=== PATIENT | male | born 1975 | race Caucasian/White ===

== ENCOUNTER 2017-12-09 20:43 | Inpatient (IN) | payer MEDICAID, OTHER ==
[2017-12-09 21:34] LABS: WHITE BLOOD COUNT 21.7 10^3/ul (4.8-10.8)
[2017-12-09 21:34] LABS: HEMATOCRIT 40.9 % (42.0-52.0); HEMOGLOBIN 14.2 g/dl (14.0-18.0); MEAN CORPUSCULAR HEMOGLOBIN 30.7 pg (29.0-33.0); MEAN CORPUSCULAR HGB CONC 34.7 g/dl (32.0-37.0); MEAN CORPUSCULAR VOLUME 88.3 fl (82.0-101.0); MEAN PLATELET VOLUME 9.3 fl (7.4-10.4); PLATELET COUNT 173 10^3/UL (140-415); POSITIVE DIFF @See below; RED BLOOD COUNT 4.63 10^6/ul (4.70-6.10); RED CELL DISTRIBUTION WIDTH 13.6 % (11.5-14.5)
[2017-12-09 21:36] LABS: ADD MAN DIFF? YES
[2017-12-09 21:55] LABS: INR 1.01; PROTIME 13.4 Sec (11.9-14.9)
[2017-12-09 21:56] LABS: PARTIAL THROMBOPLASTIN TIME 35.3 Sec (25.0-35.0)
[2017-12-09 22:00] LABS: ALANINE AMINOTRANSFERASE 57 IU/L (13-69); ALBUMIN 4.1 g/dl (3.3-4.9); ALKALINE PHOSPHATASE 87 IU/L (42-121); ANION GAP 18 (8-16); ASPARTATE AMINO TRANSFERASE 50 IU/L (15-46); BILIRUBIN,INDIRECT 0.5 mg/dl (0-1.1); BILIRUBIN,TOTAL 0.5 mg/dl (0.2-1.3); BLOOD UREA NITROGEN 39 mg/dl (7-20); CALCIUM 9.7 mg/dl (8.4-10.2); CARBON DIOXIDE 17 mmol/L (21-31); CHLORIDE 104 mmol/L (97-110); CREATININE 5.67 mg/dl (0.61-1.24); GLUCOSE 146 mg/dl (70-220); LIPASE 29 U/L (23-300); POTASSIUM 4.4 mmol/L (3.5-5.1); SODIUM 135 mmol/L (135-144); TOTAL PROTEIN 7.5 g/dl (6.1-8.1)
[2017-12-09 22:15] LABS: ANISOCYTOSIS 2+ (0-0); BAND NEUTROPHILS #M 6.2 10^3/ul (0.0-0.6); BAND NEUTROPHILS % (M) 29 % (0-4); LYMPHOCYTES #M 0.8 10^3/ul (0.8-2.9); LYMPHOCYTES % (M) 4 % (15-51); MICROCYTOSIS 1+ (0-0); MONOCYTE #M 1.5 10^3/ul (0.3-0.9); MONOCYTES % (M) 7 % (0-11); PLATELET ESTIMATE NORMAL; POLYCHROMASIA 3+ (0-0); REACTIVE LYMPHOCYTES #M 0.2 10^3/ul (0.0-0.0); REACTIVE LYMPHOCYTES% (M) 1 % (0-0); SEG NEUT #M 14.1 10^3/ul (1.6-7.5); SEGMENTED NEUTROPHILS (M) % 59 % (39-77); SMUDGE%M 4 % (0-0)
[2017-12-09 22:19] LABS: TROPONIN-I 0.153 ng/ml (0.000-0.120)
[2017-12-09 22:28] LABS: URINE BLOOD (Dip) POC 2+ (NEGATIVE); URINE GLUCOSE (Dip) POC Negative (NEGATIVE); URINE KETONES (Dip) POC Negative (NEGATIVE); URINE LEUKOCYTE EST (Dip) POC Negative (NEGATIVE); URINE NITRITE (Dip) POC Negative (NEGATIVE); URINE TOTAL PROTEIN POC 3+ (NEGATIVE)
[2017-12-09] MEDS: ONDANSETRON 4 MG INJ IV (23:08)
[2017-12-09] MEDS: morphine 4 MG/ML VIAL IV (23:09)
[2017-12-10 00:14] LABS: LACTIC ACID 1.8 mmol/L (0.5-2.0)
[2017-12-10] MEDS: VANCOMYCIN 1 GM (PMX) 250 ML IVPB (01:29)
[2017-12-10] MEDS: PIPER-TAZO 3.375 GM IV (PMX) 100 ML IVPB (01:29)
[2017-12-10] MEDS: ACETAMINOPHEN 325 MG TAB PO ×3 (01:29→15:02)
[2017-12-10] MEDS: ONDANSETRON 4 MG INJ IV ×3 (02:05→13:57)
[2017-12-10] MEDS ORDERED: ALBUTEROL/IPRATROPIUM (NEB) 3 ML AMP HHN (02:30)
[2017-12-10] MEDS ORDERED: NACL 0.9% 3 ML SYG IV (02:30)
[2017-12-10] MEDS ORDERED: NITROGLYCERIN (SL) 0.4 MG TAB SL (02:30)
[2017-12-10] MEDS: morphine 4 MG/ML VIAL IV (03:37)
[2017-12-10 04:19] LABS: CREATINE KINASE 882 IU/L (23-200)
[2017-12-10 04:19] LABS: LACTIC ACID 0.9 mmol/L (0.5-2.0)
[2017-12-10 04:30] LABS: CK INDEX 0.1
[2017-12-10 04:46] LABS: TROPONIN-I 0.139 ng/ml (0.000-0.120)
[2017-12-10 05:55] LABS: ADD MAN DIFF? NO
[2017-12-10] MEDS ORDERED: VANCOMYCIN IV PER PHARMACY XX (06:00)
[2017-12-10 06:08] LABS: WHITE BLOOD COUNT 20.4 10^3/ul (4.8-10.8)
[2017-12-10 06:08] LABS: BASOPHIL # 0.1 10^3/ul (0.0-0.1); BASOPHILS % 0.2 % (0.0-2.0); HEMOGLOBIN 14.1 g/dl (14.0-18.0); LYMPHOCYTES # 0.8 10^3/ul (0.8-2.9); LYMPHOCYTES % 3.8 % (15.0-51.0); MEAN CORPUSCULAR HEMOGLOBIN 30.7 pg (29.0-33.0); MEAN CORPUSCULAR HGB CONC 34.4 g/dl (32.0-37.0); MEAN CORPUSCULAR VOLUME 89.3 fl (82.0-101.0); MEAN PLATELET VOLUME 9.8 fl (7.4-10.4); MONOCYTE # 1.1 10^3/ul (0.3-0.9); MONOCYTES % 5.5 % (0.0-11.0); NEUTROPHIL # 18.3 10^3/ul (1.6-7.5); NEUTROPHILS % 89.6 % (39.0-77.0); PLATELET COUNT 145 10^3/UL (140-415); POSITIVE DIFF @See below; RED BLOOD COUNT 4.59 10^6/ul (4.70-6.10); RED CELL DISTRIBUTION WIDTH 13.5 % (11.5-14.5)
[2017-12-10 06:29] LABS: LACTIC ACID 0.9 mmol/L (0.5-2.0)
[2017-12-10 06:43] LABS: ALANINE AMINOTRANSFERASE 54 IU/L (13-69); ALBUMIN 3.7 g/dl (3.3-4.9); ALBUMIN/GLOBULIN RATIO 1.54; ALKALINE PHOSPHATASE 81 IU/L (42-121); ANION GAP 22 (8-16); ASPARTATE AMINO TRANSFERASE 44 IU/L (15-46); BILIRUBIN,INDIRECT 0.5 mg/dl (0-1.1); BILIRUBIN,TOTAL 0.5 mg/dl (0.2-1.3); BLOOD UREA NITROGEN 46 mg/dl (7-20); CALCIUM 9.3 mg/dl (8.4-10.2); CARBON DIOXIDE 19 mmol/L (21-31); CHLORIDE 100 mmol/L (97-110); CHOL/HDL RATIO 3.8 RATIO; CHOLESTEROL 190 mg/dl (100-200); CREATININE 5.76 mg/dl (0.61-1.24); GLUCOSE 111 mg/dl (70-220); HDL CHOLESTEROL 49 mg/dl (27-67); LDL CHOLESTEROL,CALCULATED 107 mg/dl; MAGNESIUM 1.5 mg/dl (1.7-2.5); POTASSIUM 5.1 mmol/L (3.5-5.1); SODIUM 136 mmol/L (135-144); TOTAL PROTEIN 6.1 g/dl (6.1-8.1); TRIGLYCERIDES 170 mg/dl (0-149)
[2017-12-10 07:19] LABS: HEMOGLOBIN A1C 5.2 % (0-5.9)
[2017-12-10 07:56] LABS: ANISOCYTOSIS 1+ (0-0); BAND NEUTROPHILS #M 7.7 10^3/ul (0.0-0.6); BAND NEUTROPHILS % (M) 38 % (0-4); LYMPHOCYTES #M 0.2 10^3/ul (0.8-2.9); LYMPHOCYTES % (M) 1 % (15-51); MICROCYTOSIS 1+ (0-0); MONOCYTE #M 1.4 10^3/ul (0.3-0.9); MONOCYTES % (M) 7 % (0-11); PLATELET ESTIMATE NORMAL; REACTIVE LYMPHOCYTES #M 0.2 10^3/ul (0.0-0.0); REACTIVE LYMPHOCYTES% (M) 1 % (0-0); SEG NEUT #M 12.4 10^3/ul (1.6-7.5); SEGMENTED NEUTROPHILS (M) % 53 % (39-77); SMUDGE%M 7 % (0-0)
[2017-12-10] MEDS: SOD CHLORIDE 0.9% 1,000 ML IV (08:15)
[2017-12-10] MEDS: VANCOMYCIN 750 MG in SOD CHLORIDE 0.9% 150 ML IVPB (08:30)
[2017-12-10] MEDS: morphine 2 MG INJ IV ×2 (08:40→16:27)
[2017-12-10] MEDS: BENAZEPRIL 5 MG TAB PO (08:41)
[2017-12-10] MEDS: LABETALOL 200 MG TAB PO (08:41)
[2017-12-10] MEDS: HEPARIN 5,000 UNIT/0.5 ML VIAL SC ×2 (08:43→21:00)
[2017-12-10] MEDS: ASPIRIN (EC) 81 MG TAB PO (08:43)
[2017-12-10 11:16] LABS: CREATINE KINASE 646 IU/L (23-200)
[2017-12-10 11:28] LABS: CK INDEX 0.1
[2017-12-10 11:29] LABS: CK-MB 0.37 ng/ml (0.0-2.4); TROPONIN-I 0.147 ng/ml (0.000-0.120)
[2017-12-10] MEDS: PIPER-TAZO 2.25 GM (PMX) 50 ML IVPB ×3 (11:33→22:44)
[2017-12-10] MEDS ORDERED: PIPER-TAZO 2.25 GM (PMX) 50 ML IVPB (21:00)
[2017-12-11] MEDS: ONDANSETRON 4 MG INJ IV ×2 (00:43→11:24)
[2017-12-11] MEDS: morphine 2 MG INJ IV ×3 (00:44→19:10)
[2017-12-11] MEDS: ACETAMINOPHEN 325 MG TAB PO ×3 (00:45→23:53)
[2017-12-11] MEDS: PIPER-TAZO 2.25 GM (PMX) 50 ML IVPB ×3 (05:31→21:03)
[2017-12-11 06:43] LABS: HEMATOCRIT 37.1 % (42.0-52.0); HEMOGLOBIN 12.4 g/dl (14.0-18.0); MEAN CORPUSCULAR HEMOGLOBIN 30.8 pg (29.0-33.0); MEAN CORPUSCULAR HGB CONC 33.4 g/dl (32.0-37.0); MEAN CORPUSCULAR VOLUME 92.1 fl (82.0-101.0); MEAN PLATELET VOLUME 10.6 fl (7.4-10.4); PLATELET COUNT 125 10^3/UL (140-415); POSITIVE DIFF @See below; RED BLOOD COUNT 4.03 10^6/ul (4.70-6.10); RED CELL DISTRIBUTION WIDTH 13.9 % (11.5-14.5)
[2017-12-11 06:43] LABS: WHITE BLOOD COUNT 14.6 10^3/ul (4.8-10.8)
[2017-12-11 06:49] LABS: ADD MAN DIFF? YES
[2017-12-11 07:18] LABS: MAGNESIUM 2.2 mg/dl (1.7-2.5)
[2017-12-11 07:18] LABS: PHOSPHORUS 6.3 mg/dl (2.5-4.9)
[2017-12-11 07:35] LABS: ALANINE AMINOTRANSFERASE 50 IU/L (13-69); ALBUMIN 3.4 g/dl (3.3-4.9); ALBUMIN/GLOBULIN RATIO 1.17; ALKALINE PHOSPHATASE 81 IU/L (42-121); ANION GAP 20 (8-16); ASPARTATE AMINO TRANSFERASE 38 IU/L (15-46); BILIRUBIN,INDIRECT 0.3 mg/dl (0-1.1); BILIRUBIN,TOTAL 0.3 mg/dl (0.2-1.3); BLOOD UREA NITROGEN 65 mg/dl (7-20); CALCIUM 8.8 mg/dl (8.4-10.2); CARBON DIOXIDE 19 mmol/L (21-31); CHLORIDE 102 mmol/L (97-110); GLUCOSE 98 mg/dl (70-220); POTASSIUM 5.1 mmol/L (3.5-5.1); SODIUM 136 mmol/L (135-144); TOTAL PROTEIN 6.3 g/dl (6.1-8.1)
[2017-12-11] MEDS: FAMOTIDINE 20 MG TAB PO (08:22)
[2017-12-11] MEDS: ASPIRIN (EC) 81 MG TAB PO (08:22)
[2017-12-11] MEDS: HEPARIN 5,000 UNIT/0.5 ML VIAL SC ×2 (09:00→20:55)
[2017-12-11 09:10] LABS: ANISOCYTOSIS 1+ (0-0); BAND NEUTROPHILS #M 1.6 10^3/ul (0.0-0.6); BAND NEUTROPHILS % (M) 11 % (0-4); EOSINOPHILS % (M) 1 % (0-7); ERYTHROBLAST% (NRBC) (M) 1 % (0-0); GIANT THROMBO% (M) 1 % (0-0); LYMPHOCYTES % (M) 7 % (15-51); MICROCYTOSIS 1+ (0-0); MONOCYTE #M 0.7 10^3/ul (0.3-0.9); MONOCYTES % (M) 5 % (0-11); PLATELET ESTIMATE DECREASED; POIKILOCYTOSIS 1+ (0-0); POLYCHROMASIA 1+ (0-0); REACTIVE LYMPHOCYTES #M 0.1 10^3/ul (0.0-0.0); REACTIVE LYMPHOCYTES% (M) 1 % (0-0); SEG NEUT #M 11.2 10^3/ul (1.6-7.5); SEGMENTED NEUTROPHILS (M) % 75 % (39-77); SMUDGE%M 1 % (0-0)
[2017-12-11 09:34] LABS: HEPATITIS B SURFACE ANTIGEN NEGATIVE (NEGATIVE)
[2017-12-11] MEDS: PANTOPRAZOLE (EC) 40 MG TAB PO (09:49)
[2017-12-11 10:00] LABS: HEPATITIS B SURFACE ANTIBODY POSITIVE (NEGATIVE)
[2017-12-11] MEDS ORDERED: AL HYDROX/MG HYDROX/SIMETH 30 ML CUP PO (10:00)
[2017-12-11 11:51] LABS: TROPONIN-I 0.067 ng/ml (0.000-0.120)
[2017-12-11] MEDS: HEPARIN 1000 UNITS/ML 10 ML INJ CATHETER (12:42)
[2017-12-11] MEDS ORDERED: morphine LIQ (10 MG/5 ML) CUP PO (15:30)
[2017-12-11] MEDS ORDERED: HYDROmorphONE 0.5 MG/0.5 ML SYG IV (18:00)
[2017-12-11] MEDS: ALPRAZOLAM 1 MG TAB PO (20:45)
[2017-12-11] MEDS: ATORVASTATIN 40 MG TAB PO (20:55)
[2017-12-12] MEDS: ALPRAZOLAM 1 MG TAB PO ×3 (04:43→23:48)
[2017-12-12] MEDS: PANTOPRAZOLE (EC) 40 MG TAB PO ×2 (05:01→09:54)
[2017-12-12] MEDS: PIPER-TAZO 2.25 GM (PMX) 50 ML IVPB (05:02)
[2017-12-12 06:13] LABS: ADD MAN DIFF? NO
[2017-12-12 06:22] LABS: BASOPHILS % 0.4 % (0.0-2.0); EOSINOPHILS # 0.1 10^3/ul (0.0-0.5); EOSINOPHILS % 1.3 % (0.0-7.0); HEMATOCRIT 36.4 % (42.0-52.0); LYMPHOCYTES # 1.4 10^3/ul (0.8-2.9); MEAN CORPUSCULAR HEMOGLOBIN 30.5 pg (29.0-33.0); MEAN CORPUSCULAR VOLUME 92.4 fl (82.0-101.0); MONOCYTE # 1.4 10^3/ul (0.3-0.9); MONOCYTES % 13.6 % (0.0-11.0); NEUTROPHIL # 7.4 10^3/ul (1.6-7.5); NEUTROPHILS % 71.3 % (39.0-77.0); PLATELET COUNT 128 10^3/UL (140-415); RED BLOOD COUNT 3.94 10^6/ul (4.70-6.10); RED CELL DISTRIBUTION WIDTH 13.8 % (11.5-14.5)
[2017-12-12 06:22] LABS: WHITE BLOOD COUNT 10.4 10^3/ul (4.8-10.8)
[2017-12-12 06:54] LABS: TROPONIN-I 0.044 ng/ml (0.000-0.120)
[2017-12-12 06:59] LABS: ANION GAP 16 (8-16); BLOOD UREA NITROGEN 38 mg/dl (7-20); CALCIUM 8.8 mg/dl (8.4-10.2); CARBON DIOXIDE 29 mmol/L (21-31); CHLORIDE 99 mmol/L (97-110); CREATININE 8.12 mg/dl (0.61-1.24); GLUCOSE 104 mg/dl (70-220); POTASSIUM 4.5 mmol/L (3.5-5.1); SODIUM 139 mmol/L (135-144)
[2017-12-12] MEDS: ACETAMINOPHEN 325 MG TAB PO ×2 (07:14→18:28)
[2017-12-12] MEDS: morphine 2 MG INJ IV ×2 (07:14→12:06)
[2017-12-12] MEDS: FAMOTIDINE 20 MG TAB PO (09:54)
[2017-12-12] MEDS: HEPARIN 5,000 UNIT/0.5 ML VIAL SC ×2 (09:58→20:42)
[2017-12-12] MEDS: ASPIRIN (EC) 81 MG TAB PO (12:06)
[2017-12-12] MEDS: METOPROLOL 25 MG TAB PO ×2 (15:29→20:40)
[2017-12-12] MEDS ORDERED: morphine LIQ (10 MG/5 ML) CUP PO (16:30)
[2017-12-12] MEDS: VANCOMYCIN 1 GM 250 ML IVPB (16:35)
[2017-12-12] MEDS: ATORVASTATIN 40 MG TAB PO ×3 (20:40→20:44)
[2017-12-13 05:22] LABS: ADD MAN DIFF? NO
[2017-12-13 05:38] LABS: WHITE BLOOD COUNT 9.7 10^3/ul (4.8-10.8)
[2017-12-13 05:38] LABS: ABNORMAL IP MESSAGE 1; BASOPHILS % 0.4 % (0.0-2.0); EOSINOPHILS # 0.1 10^3/ul (0.0-0.5); EOSINOPHILS % 0.8 % (0.0-7.0); HEMATOCRIT 34.7 % (42.0-52.0); HEMOGLOBIN 11.5 g/dl (14.0-18.0); LYMPHOCYTES % 20.8 % (15.0-51.0); MEAN CORPUSCULAR HEMOGLOBIN 30.5 pg (29.0-33.0); MEAN CORPUSCULAR HGB CONC 33.1 g/dl (32.0-37.0); MEAN PLATELET VOLUME 10.7 fl (7.4-10.4); MONOCYTE # 1.7 10^3/ul (0.3-0.9); MONOCYTES % 17.2 % (0.0-11.0); NEUTROPHIL # 5.8 10^3/ul (1.6-7.5); NEUTROPHILS % 60.1 % (39.0-77.0); PLATELET COUNT 144 10^3/UL (140-415); POSITIVE DIFF @See below; RED BLOOD COUNT 3.77 10^6/ul (4.70-6.10); RED CELL DISTRIBUTION WIDTH 13.6 % (11.5-14.5)
[2017-12-13] MEDS: morphine 2 MG INJ IV ×2 (05:42→17:04)
[2017-12-13 05:57] LABS: ANION GAP 20 (8-16); BLOOD UREA NITROGEN 49 mg/dl (7-20); CALCIUM 8.8 mg/dl (8.4-10.2); CARBON DIOXIDE 27 mmol/L (21-31); CHLORIDE 94 mmol/L (97-110); CREATININE 10.46 mg/dl (0.61-1.24); GLUCOSE 105 mg/dl (70-220); POTASSIUM 5.3 mmol/L (3.5-5.1); SODIUM 136 mmol/L (135-144)
[2017-12-13] MEDS: ACETAMINOPHEN 325 MG TAB PO ×2 (08:09→17:51)
[2017-12-13] MEDS: FAMOTIDINE 20 MG TAB PO (08:09)
[2017-12-13] MEDS: ASPIRIN (EC) 81 MG TAB PO (08:09)
[2017-12-13] MEDS: METOPROLOL 25 MG TAB PO (08:09)
[2017-12-13] MEDS: HEPARIN 5,000 UNIT/0.5 ML VIAL SC ×2 (08:11→20:08)
[2017-12-13] MEDS: HEPARIN 1000 UNITS/ML 10 ML INJ CATHETER (13:08)
[2017-12-13] MEDS: hydrALAzine 20 MG INJ IV (16:02)
[2017-12-13] MEDS: DIPHENHYDRAMINE 25 MG CAP PO (20:06)
[2017-12-13] MEDS: ALPRAZOLAM 1 MG TAB PO (20:11)
[2017-12-13] MEDS: ATORVASTATIN 40 MG TAB PO (20:13)
[2017-12-14] MEDS: hydrOXYzine HCL 25 MG TAB PO (00:25)
[2017-12-14] MEDS: morphine 2 MG INJ IV ×2 (03:23→12:00)
[2017-12-14] MEDS: PANTOPRAZOLE (EC) 40 MG TAB PO (05:45)
[2017-12-14 07:13] LABS: ADD MAN DIFF? NO
[2017-12-14 07:19] LABS: BASOPHILS % 0.4 % (0.0-2.0); EOSINOPHILS # 0.1 10^3/ul (0.0-0.5); EOSINOPHILS % 1.7 % (0.0-7.0); HEMATOCRIT 32.4 % (42.0-52.0); HEMOGLOBIN 11.1 g/dl (14.0-18.0); LYMPHOCYTES # 1.8 10^3/ul (0.8-2.9); LYMPHOCYTES % 20.9 % (15.0-51.0); MEAN CORPUSCULAR HEMOGLOBIN 30.7 pg (29.0-33.0); MEAN CORPUSCULAR HGB CONC 34.3 g/dl (32.0-37.0); MEAN CORPUSCULAR VOLUME 89.5 fl (82.0-101.0); MEAN PLATELET VOLUME 10.5 fl (7.4-10.4); MONOCYTE # 1.2 10^3/ul (0.3-0.9); MONOCYTES % 14.3 % (0.0-11.0); NEUTROPHIL # 5.3 10^3/ul (1.6-7.5); NEUTROPHILS % 61.8 % (39.0-77.0); PLATELET COUNT 188 10^3/UL (140-415); RED BLOOD COUNT 3.62 10^6/ul (4.70-6.10); RED CELL DISTRIBUTION WIDTH 13.2 % (11.5-14.5)
[2017-12-14 07:19] LABS: WHITE BLOOD COUNT 8.5 10^3/ul (4.8-10.8)
[2017-12-14 07:35] LABS: ANION GAP 18 (8-16); BLOOD UREA NITROGEN 36 mg/dl (7-20); CALCIUM 8.7 mg/dl (8.4-10.2); CARBON DIOXIDE 25 mmol/L (21-31); CHLORIDE 97 mmol/L (97-110); CREATININE 8.37 mg/dl (0.61-1.24); GLUCOSE 112 mg/dl (70-220); SODIUM 136 mmol/L (135-144)
[2017-12-14] MEDS: ASPIRIN (EC) 81 MG TAB PO (08:17)
[2017-12-14] MEDS: FAMOTIDINE 20 MG TAB PO (08:18)
[2017-12-14] MEDS: HEPARIN 5,000 UNIT/0.5 ML VIAL SC ×2 (08:53→21:36)
[2017-12-14] MEDS: hydrALAzine 20 MG INJ IV (11:24)
[2017-12-14] MEDS: DIPHENHYDRAMINE 25 MG CAP PO ×2 (11:59→21:33)
[2017-12-14] MEDS: ALPRAZOLAM 1 MG TAB PO ×2 (14:54→23:59)
[2017-12-14] MEDS: hydrOXYzine HCL 10 MG TAB PO (18:22)
[2017-12-14] MEDS: ATORVASTATIN 40 MG TAB PO (21:00)
[2017-12-14] MEDS: ACETAMINOPHEN 325 MG TAB PO (23:59)
[2017-12-15] MEDS: PANTOPRAZOLE (EC) 40 MG TAB PO (05:17)
[2017-12-15] MEDS: VALSARTAN 80 MG TAB PO ×2 (09:04→21:03)
[2017-12-15] MEDS: FAMOTIDINE 20 MG TAB PO (09:05)
[2017-12-15] MEDS: ASPIRIN (EC) 81 MG TAB PO (09:06)
[2017-12-15] MEDS: METHYLPREDNISOLONE 40 MG INJ IV (09:06)
[2017-12-15] MEDS: hydrOXYzine HCL 10 MG TAB PO (09:06)
[2017-12-15] MEDS: HEPARIN 5,000 UNIT/0.5 ML VIAL SC ×2 (09:59→21:09)
[2017-12-15] MEDS: VANCOMYCIN 1 GM 250 ML IVPB (10:52)
[2017-12-15] MEDS: ATORVASTATIN 40 MG TAB PO (21:00)
[2017-12-15] MEDS: hydrALAzine 20 MG INJ IV (22:46)
[2017-12-16] MEDS: ALPRAZOLAM 1 MG TAB PO (00:12)
[2017-12-16] MEDS: morphine 2 MG INJ IV ×2 (01:17→20:33)
[2017-12-16] MEDS: hydrALAzine 20 MG INJ IV (01:17)
[2017-12-16] MEDS: PANTOPRAZOLE (EC) 40 MG TAB PO (05:26)
[2017-12-16] MEDS: DIPHENHYDRAMINE 25 MG CAP PO (05:26)
[2017-12-16] MEDS: HEPARIN 5,000 UNIT/0.5 ML VIAL SC ×2 (08:08→20:33)
[2017-12-16] MEDS: ASPIRIN (EC) 81 MG TAB PO (08:08)
[2017-12-16] MEDS ORDERED: IOHEXOL 350MG/ML 50 ML BTL (09:21)
[2017-12-16] MEDS ORDERED: HEPARIN 1000 UNITS/NS (A-LINE) 1,000 ML (09:21)
[2017-12-16] MEDS ORDERED: LIDOCAINE 1% (MDV) 10 ML INJ ×2 (09:21→09:39)
[2017-12-16] MEDS ORDERED: MIDAZOLAM 1 MG/ML 2 ML INJ (09:36)
[2017-12-16] MEDS ORDERED: FENTAnyl 50 MCG/ML VIAL (09:36)
[2017-12-16] MEDS ORDERED: HEPARIN 1000 UNITS/ML 10 ML INJ (09:47)
[2017-12-16] MEDS ORDERED: SOD CHLORIDE 0.9% 500 ML (09:56)
[2017-12-16] MEDS: FAMOTIDINE 20 MG TAB PO (10:38)
[2017-12-16] MEDS: VALSARTAN 80 MG TAB PO ×2 (10:39→20:31)
[2017-12-16] MEDS: NIFEdipine (XL) 60 MG TAB PO (16:00)
[2017-12-16] MEDS: HEPARIN 1000 UNITS/ML 10 ML INJ CATHETER (20:28)
[2017-12-16] MEDS: ATORVASTATIN 40 MG TAB PO (20:30)
[2017-12-17] MEDS: morphine 2 MG INJ IV ×3 (00:48→15:03)
[2017-12-17] MEDS: hydrALAzine 20 MG INJ IV (01:48)
[2017-12-17] MEDS: ACETAMINOPHEN 325 MG TAB PO (02:31)
[2017-12-17] MEDS: PANTOPRAZOLE (EC) 40 MG TAB PO (05:39)
[2017-12-17] MEDS: FAMOTIDINE 20 MG TAB PO (08:45)
[2017-12-17] MEDS: NIFEdipine (XL) 60 MG TAB PO (08:45)
[2017-12-17] MEDS: VALSARTAN 80 MG TAB PO ×2 (08:46→20:44)
[2017-12-17] MEDS: ASPIRIN (EC) 81 MG TAB PO (08:46)
[2017-12-17] MEDS: HEPARIN 5,000 UNIT/0.5 ML VIAL SC ×2 (08:47→20:49)
[2017-12-17 15:11] LABS: ABNORMAL IP MESSAGE 1; HEMATOCRIT 31.5 % (42.0-52.0); HEMOGLOBIN 10.4 g/dl (14.0-18.0); MEAN CORPUSCULAR HEMOGLOBIN 30.3 pg (29.0-33.0); MEAN CORPUSCULAR VOLUME 91.8 fl (82.0-101.0); MEAN PLATELET VOLUME 9.5 fl (7.4-10.4); PLATELET COUNT 404 10^3/UL (140-415); POSITIVE DIFF @See below; RED BLOOD COUNT 3.43 10^6/ul (4.70-6.10); RED CELL DISTRIBUTION WIDTH 13.8 % (11.5-14.5)
[2017-12-17 15:11] LABS: WHITE BLOOD COUNT 9.2 10^3/ul (4.8-10.8)
[2017-12-17 15:24] LABS: ADD MAN DIFF? YES
[2017-12-17 15:32] LABS: INR 0.89; PROTIME 12.1 Sec (11.9-14.9); PT RATIO 0.9
[2017-12-17 15:50] LABS: ALANINE AMINOTRANSFERASE 156 IU/L (13-69); ALBUMIN 3.2 g/dl (3.3-4.9); ALBUMIN/GLOBULIN RATIO 1.03; ALKALINE PHOSPHATASE 200 IU/L (42-121); ANION GAP 17 (8-16); ASPARTATE AMINO TRANSFERASE 68 IU/L (15-46); BILIRUBIN,INDIRECT 0.1 mg/dl (0-1.1); BILIRUBIN,TOTAL 0.1 mg/dl (0.2-1.3); BLOOD UREA NITROGEN 68 mg/dl (7-20); CALCIUM 8.8 mg/dl (8.4-10.2); CARBON DIOXIDE 21 mmol/L (21-31); CHLORIDE 103 mmol/L (97-110); CREATININE 9.57 mg/dl (0.61-1.24); GLUCOSE 108 mg/dl (70-220); PHOSPHORUS 5.9 mg/dl (2.5-4.9); SODIUM 136 mmol/L (135-144); TOTAL PROTEIN 6.3 g/dl (6.1-8.1)
[2017-12-17 16:00] LABS: BAND NEUTROPHILS % (M) 1 % (0-4); EOSINOPHILS % (M) 1 % (0-7); LYMPHOCYTES #M 2.5 10^3/ul (0.8-2.9); LYMPHOCYTES % (M) 28 % (15-51); MONOCYTE #M 0.6 10^3/ul (0.3-0.9); MONOCYTES % (M) 7 % (0-11); MYELOCYTES #M 0.2 10^3/ul (0.0-0.0); MYELOCYTES % (M) 3 % (0-0); PLATELET ESTIMATE NORMAL; REACTIVE LYMPHOCYTES% (M) 1 % (0-0); SEG NEUT #M 5.4 10^3/ul (1.6-7.5); SEGMENTED NEUTROPHILS (M) % 59 % (39-77); SMUDGE%M 4 % (0-0)
[2017-12-17] MEDS: ATORVASTATIN 40 MG TAB PO (20:45)
== END 2017-12-17 23:10 | disposition left against medical advice (07) | DRG 252 ==
LOC: TEL 12-13 14:48 → MS2 12-16 00:34 → MS1 12-16 01:03 → E/R 20:43 → MS3 12-10 01:16
PROVIDERS: Internal Medicine
PROC: 05793ZZ Dilation of Right Brachial Vein, Percutaneous Approach (ICD-10-PCS; principal; 2017-12-16 09:15)
PROC: 057Y3ZZ Dilation of Upper Vein, Percutaneous Approach (ICD-10-PCS; 2017-12-16 09:15)
PROC: B5131ZA Fluoroscopy of Right Jugular Veins using Low Osmolar Contrast, Guidance (ICD-10-PCS; 2017-12-16 09:15)
PROC: 05PY33Z Removal of Infusion Device from Upper Vein, Percutaneous Approach (ICD-10-PCS; 2017-12-16 09:15)
PROC: 05H933Z Insertion of Infusion Device into Right Brachial Vein, Percutaneous Approach (ICD-10-PCS; 2017-12-16 09:15)
PROC: B51M1ZA Fluoroscopy of Right Upper Extremity Veins using Low Osmolar Contrast, Guidance (ICD-10-PCS; 2017-12-16 09:15)
PROC: 5A1D70Z Performance of Urinary Filtration, Intermittent, Less than 6 Hours Per Day (ICD-10-PCS; 2017-12-16 09:15)
PROC: 0JH63XZ Insertion of Tunneled Vascular Access Device into Chest Subcutaneous Tissue and Fascia, Percutaneous Approach (ICD-10-PCS; 2017-12-16 09:15)
PROC: 05HM33Z Insertion of Infusion Device into Right Internal Jugular Vein, Percutaneous Approach (ICD-10-PCS; 2017-12-16 09:15)
DX: T82.7XXA Infection and inflammatory reaction due to other cardiac and vascular devices, implants and grafts, initial encounter (principal); I21.A1 Myocardial infarction type 2; N18.6 End stage renal disease; A41.01 Sepsis due to Methicillin susceptible Staphylococcus aureus; I12.0 Hypertensive chronic kidney disease with stage 5 chronic kidney disease or end stage renal disease; E87.2 Acidosis; E11.22 Type 2 diabetes mellitus with diabetic chronic kidney disease; Z99.2 Dependence on renal dialysis; Z72.0 Tobacco use; Z95.5 Presence of coronary angioplasty implant and graft; K21.9 Gastro-esophageal reflux disease without esophagitis
CPT/HCPCS: 36415; 37248; 37249; 71045; 75827; 76604; 80048; 80053; 80061; 80202; 81003; 82550; 82553; 82962; 83036; 83605; 83690; 83735; 84100; 84443; 84484; 85025; 85610; 85730; 86706; 87040; 87070; 87086; 87340; 90935; 93005; 93306; 93923; 93970; 96365; 96366; 96368; 96372; 96375; 96376; 99291-25

== ENCOUNTER 2018-01-21 04:21 | Emergency (ER) | payer MEDICAID ==
[2018-01-21 04:56] LABS: ADD MAN DIFF? NO
[2018-01-21 04:57] LABS: BASOPHILS % 0.5 % (0.0-2.0); EOSINOPHILS # 0.2 10^3/ul (0.0-0.5); EOSINOPHILS % 3.4 % (0.0-7.0); HEMATOCRIT 31.1 % (42.0-52.0); HEMOGLOBIN 10.2 g/dl (14.0-18.0); LYMPHOCYTES # 1.9 10^3/ul (0.8-2.9); LYMPHOCYTES % 29.1 % (15.0-51.0); MEAN CORPUSCULAR HEMOGLOBIN 31.1 pg (29.0-33.0); MEAN CORPUSCULAR HGB CONC 32.8 g/dl (32.0-37.0); MEAN CORPUSCULAR VOLUME 94.8 fl (82.0-101.0); MEAN PLATELET VOLUME 8.7 fl (7.4-10.4); MONOCYTE # 0.5 10^3/ul (0.3-0.9); MONOCYTES % 8.3 % (0.0-11.0); NEUTROPHIL # 3.8 10^3/ul (1.6-7.5); NEUTROPHILS % 58.4 % (39.0-77.0); PLATELET COUNT 249 10^3/UL (140-415); RED BLOOD COUNT 3.28 10^6/ul (4.70-6.10); RED CELL DISTRIBUTION WIDTH 15.5 % (11.5-14.5)
[2018-01-21 04:57] LABS: WHITE BLOOD COUNT 6.5 10^3/ul (4.8-10.8)
[2018-01-21] MEDS: hydrALAzine 20 MG INJ IV (04:57)
[2018-01-21 05:15] LABS: ANION GAP 12 (8-16); BLOOD UREA NITROGEN 45 mg/dl (7-20); CALCIUM 8.7 mg/dl (8.4-10.2); CARBON DIOXIDE 17 mmol/L (21-31); CHLORIDE 116 mmol/L (97-110); GLUCOSE 90 mg/dl (70-220); POTASSIUM 5.2 mmol/L (3.5-5.1); SODIUM 140 mmol/L (135-144)
[2018-01-21 05:18] LABS: INR 0.91; PROTIME 12.3 Sec (11.9-14.9)
[2018-01-21] MEDS: ACETAMINOPHEN 325 MG TAB PO (05:43)
== END 2018-01-21 05:56 | disposition home or self-care (01) ==
LOC: E/R 05:56
DX: T82.9XXA Unspecified complication of cardiac and vascular prosthetic device, implant and graft, initial encounter (principal); N18.6 End stage renal disease; I12.0 Hypertensive chronic kidney disease with stage 5 chronic kidney disease or end stage renal disease; F17.210 Nicotine dependence, cigarettes, uncomplicated; Y71.2 Prosthetic and other implants, materials and accessory cardiovascular devices associated with adverse incidents; Z79.82 Long term (current) use of aspirin; Z99.2 Dependence on renal dialysis
CPT/HCPCS: 71045; 80048; 85025; 85610; 96374; 99284-25

== ENCOUNTER 2018-01-22 18:54 | Inpatient (IN) | payer MEDICAID ==
[2018-01-22] MEDS: CEFEPIME 2GM/50 ML (PMX) 50 ML IVPB (21:56)
[2018-01-22 22:05] LABS: ADD MAN DIFF? NO
[2018-01-22 22:08] LABS: WHITE BLOOD COUNT 6.3 10^3/ul (4.8-10.8)
[2018-01-22 22:08] LABS: BASOPHILS % 0.6 % (0.0-2.0); EOSINOPHILS # 0.2 10^3/ul (0.0-0.5); EOSINOPHILS % 3.2 % (0.0-7.0); HEMATOCRIT 33.1 % (42.0-52.0); HEMOGLOBIN 10.8 g/dl (14.0-18.0); LYMPHOCYTES # 1.7 10^3/ul (0.8-2.9); LYMPHOCYTES % 26.2 % (15.0-51.0); MEAN CORPUSCULAR HEMOGLOBIN 31.2 pg (29.0-33.0); MEAN CORPUSCULAR HGB CONC 32.6 g/dl (32.0-37.0); MEAN CORPUSCULAR VOLUME 95.7 fl (82.0-101.0); MEAN PLATELET VOLUME 9.1 fl (7.4-10.4); MONOCYTE # 0.5 10^3/ul (0.3-0.9); MONOCYTES % 8.5 % (0.0-11.0); NEUTROPHIL # 3.9 10^3/ul (1.6-7.5); NEUTROPHILS % 61.2 % (39.0-77.0); PLATELET COUNT 260 10^3/UL (140-415); RED BLOOD COUNT 3.46 10^6/ul (4.70-6.10); RED CELL DISTRIBUTION WIDTH 15.6 % (11.5-14.5)
[2018-01-22 22:25] LABS: LACTIC ACID < 0.5 mmol/L (0.5-2.0)
[2018-01-22 22:25] LABS: ANION GAP 16 (8-16); BLOOD UREA NITROGEN 49 mg/dl (7-20); CALCIUM 8.9 mg/dl (8.4-10.2); CARBON DIOXIDE 15 mmol/L (21-31); CHLORIDE 114 mmol/L (97-110); CREATININE 6.28 mg/dl (0.61-1.24); GLUCOSE 81 mg/dl (70-220); POTASSIUM 5.7 mmol/L (3.5-5.1); SODIUM 139 mmol/L (135-144)
[2018-01-22 22:26] LABS: INR 0.91; PROTIME 12.3 Sec (11.9-14.9)
[2018-01-22 22:27] LABS: PARTIAL THROMBOPLASTIN TIME 30.2 Sec (25.0-35.0)
[2018-01-22] MEDS: VANCOMYCIN 1 GM (PMX) 250 ML IVPB (22:30)
[2018-01-22] MEDS ORDERED: ACETAMINOPHEN 325 MG TAB PO (23:30)
[2018-01-22] MEDS ORDERED: ONDANSETRON 4 MG INJ IV (23:30)
[2018-01-23] MEDS ORDERED: BISACODYL (EC) 5 MG TAB PO
[2018-01-23] MEDS ORDERED: DOCUSATE SODIUM 100 MG CAP PO
[2018-01-23] MEDS ORDERED: NACL 0.9% 3 ML SYG IV
[2018-01-23] MEDS ORDERED: METOCLOPRAMIDE 10 MG INJ IV
[2018-01-23] MEDS ORDERED: ACETAMINOPHEN 325 MG TAB PO
[2018-01-23 00:17] LABS: LACTIC ACID 0.9 mmol/L (0.5-2.0)
[2018-01-23] MEDS: HYDROCODONE/APAP (10/325) TAB PO (00:25)
[2018-01-23] MEDS: LABETALOL HCL 20MG INJ IV (00:26)
[2018-01-23] MEDS ORDERED: hydrALAzine 20 MG INJ IV (02:00)
[2018-01-23] MEDS: BENAZEPRIL 20 MG TAB PO ×3 (02:17→21:00)
[2018-01-23] MEDS: morphine 2 MG INJ IV ×4 (02:49→18:37)
[2018-01-23 03:04] LABS: LACTIC ACID 0.8 mmol/L (0.5-2.0)
[2018-01-23] MEDS: NA POLYST SULFON 15 GM/60 ML BTL PO (04:28)
[2018-01-23] MEDS: SOD CHLORIDE 0.9% 1,000 ML IV ×2 (04:28→23:59)
[2018-01-23] MEDS: hydrALAzine 20 MG INJ IV (04:29)
[2018-01-23] MEDS: HYDROCODONE/APAP (5/325) TAB PO ×2 (04:38→15:16)
[2018-01-23] MEDS: ALPRAZOLAM 1 MG TAB PO (04:38)
[2018-01-23] MEDS: PANTOPRAZOLE (EC) 40 MG TAB PO (06:05)
[2018-01-23 06:24] LABS: ADD MAN DIFF? NO
[2018-01-23 06:28] LABS: BASOPHILS % 0.2 % (0.0-2.0); EOSINOPHILS # 0.2 10^3/ul (0.0-0.5); EOSINOPHILS % 2.4 % (0.0-7.0); HEMATOCRIT 36.9 % (42.0-52.0); HEMOGLOBIN 12.1 g/dl (14.0-18.0); LYMPHOCYTES # 1.3 10^3/ul (0.8-2.9); LYMPHOCYTES % 15.3 % (15.0-51.0); MEAN CORPUSCULAR HEMOGLOBIN 31.5 pg (29.0-33.0); MEAN CORPUSCULAR HGB CONC 32.8 g/dl (32.0-37.0); MEAN CORPUSCULAR VOLUME 96.1 fl (82.0-101.0); MEAN PLATELET VOLUME 9.3 fl (7.4-10.4); MONOCYTE # 0.5 10^3/ul (0.3-0.9); MONOCYTES % 6.3 % (0.0-11.0); NEUTROPHIL # 6.3 10^3/ul (1.6-7.5); NEUTROPHILS % 75.3 % (39.0-77.0); PLATELET COUNT 284 10^3/UL (140-415); RED BLOOD COUNT 3.84 10^6/ul (4.70-6.10); RED CELL DISTRIBUTION WIDTH 15.6 % (11.5-14.5)
[2018-01-23 06:28] LABS: WHITE BLOOD COUNT 8.4 10^3/ul (4.8-10.8)
[2018-01-23 06:56] LABS: ALANINE AMINOTRANSFERASE 14 IU/L (13-69); ALBUMIN 4.4 g/dl (3.3-4.9); ALBUMIN/GLOBULIN RATIO 1.46; ALKALINE PHOSPHATASE 88 IU/L (42-121); ANION GAP 17 (8-16); ASPARTATE AMINO TRANSFERASE 18 IU/L (15-46); BILIRUBIN,INDIRECT 0.1 mg/dl (0-1.1); BILIRUBIN,TOTAL 0.1 mg/dl (0.2-1.3); BLOOD UREA NITROGEN 49 mg/dl (7-20); CALCIUM 9.3 mg/dl (8.4-10.2); CARBON DIOXIDE 16 mmol/L (21-31); CHLORIDE 114 mmol/L (97-110); CREATININE 6.01 mg/dl (0.61-1.24); GLUCOSE 99 mg/dl (70-220); POTASSIUM 5.2 mmol/L (3.5-5.1); SODIUM 142 mmol/L (135-144); TOTAL PROTEIN 7.4 g/dl (6.1-8.1)
[2018-01-23] MEDS: MULTIVITAMINS THERAPEUTIC TAB PO (08:46)
[2018-01-23] MEDS: ASPIRIN (EC) 81 MG TAB PO (08:46)
[2018-01-23] MEDS: ESCITALOPRAM 10 MG TAB PO (08:46)
[2018-01-23] MEDS: LABETALOL 200 MG TAB PO ×2 (08:46→21:00)
[2018-01-23] MEDS ORDERED: SODIUM CHLORIDE 0.9% 1L BAG IV (09:30)
[2018-01-23] MEDS ORDERED: ALBUMIN HUMAN 25% 100 ML IV (09:30)
[2018-01-23] MEDS ORDERED: HEPARIN 1000 UNITS/ML 10 ML INJ (13:43)
[2018-01-23] MEDS ORDERED: LIDOCAINE 1% (MDV) 20 ML INJ (13:43)
[2018-01-23] MEDS ORDERED: MIDAZOLAM 1 MG/ML 2 ML INJ (13:43)
[2018-01-23] MEDS ORDERED: FENTAnyl 50 MCG/ML VIAL (13:44)
[2018-01-23] MEDS ORDERED: SOD CHLORIDE 0.9% 500 ML (13:57)
[2018-01-23 20:50] LABS: CHOLESTEROL 184 mg/dl (100-200)
[2018-01-23 20:50] LABS: CHOL/HDL RATIO 5.5 RATIO; HDL CHOLESTEROL 33 mg/dl (27-67); LDL CHOLESTEROL,CALCULATED 97 mg/dl; TRIGLYCERIDES 270 mg/dl (0-149)
[2018-01-23] MEDS: DIPHENHYDRAMINE 25 MG CAP PO (21:14)
[2018-01-24] MEDS: HEPARIN 1000 UNITS/ML 10 ML INJ CATHETER (00:53)
[2018-01-24 01:35] LABS: CREATINE KINASE 43 IU/L (23-200)
[2018-01-24 01:49] LABS: CK INDEX 1.6; CK-MB 0.67 ng/ml (0.0-2.4); TROPONIN-I 0.019 ng/ml (0.000-0.120)
[2018-01-24] MEDS: morphine 2 MG INJ IV (02:03)
[2018-01-24] MEDS: BENAZEPRIL 20 MG TAB PO ×2 (02:04→08:19)
[2018-01-24] MEDS: LABETALOL 200 MG TAB PO ×2 (02:04→08:19)
[2018-01-24] MEDS: ALPRAZOLAM 1 MG TAB PO (02:10)
[2018-01-24] MEDS: PANTOPRAZOLE (EC) 40 MG TAB PO (05:55)
[2018-01-24 06:04] LABS: ADD MAN DIFF? NO
[2018-01-24 06:14] LABS: BASOPHILS % 0.5 % (0.0-2.0); EOSINOPHILS # 0.2 10^3/ul (0.0-0.5); EOSINOPHILS % 3.3 % (0.0-7.0); HEMATOCRIT 33.1 % (42.0-52.0); HEMOGLOBIN 11.2 g/dl (14.0-18.0); LYMPHOCYTES # 1.3 10^3/ul (0.8-2.9); MEAN CORPUSCULAR HEMOGLOBIN 31.4 pg (29.0-33.0); MEAN CORPUSCULAR HGB CONC 33.8 g/dl (32.0-37.0); MEAN CORPUSCULAR VOLUME 92.7 fl (82.0-101.0); MEAN PLATELET VOLUME 9.1 fl (7.4-10.4); MONOCYTE # 0.5 10^3/ul (0.3-0.9); MONOCYTES % 9.3 % (0.0-11.0); NEUTROPHIL # 3.4 10^3/ul (1.6-7.5); NEUTROPHILS % 62.5 % (39.0-77.0); PLATELET COUNT 248 10^3/UL (140-415); RED BLOOD COUNT 3.57 10^6/ul (4.70-6.10); RED CELL DISTRIBUTION WIDTH 15.1 % (11.5-14.5)
[2018-01-24 06:14] LABS: WHITE BLOOD COUNT 5.5 10^3/ul (4.8-10.8)
[2018-01-24 06:49] LABS: CREATINE KINASE 37 IU/L (23-200)
[2018-01-24 06:57] LABS: CK INDEX 1.5; CK-MB 0.55 ng/ml (0.0-2.4); TROPONIN-I 0.037 ng/ml (0.000-0.120)
[2018-01-24 07:05] LABS: ALANINE AMINOTRANSFERASE 13 IU/L (13-69); ALBUMIN 3.6 g/dl (3.3-4.9); ALBUMIN/GLOBULIN RATIO 1.33; ALKALINE PHOSPHATASE 89 IU/L (42-121); ANION GAP 17 (8-16); ASPARTATE AMINO TRANSFERASE 12 IU/L (15-46); BILIRUBIN,INDIRECT 0.3 mg/dl (0-1.1); BILIRUBIN,TOTAL 0.3 mg/dl (0.2-1.3); BLOOD UREA NITROGEN 23 mg/dl (7-20); CALCIUM 8.6 mg/dl (8.4-10.2); CARBON DIOXIDE 23 mmol/L (21-31); CHLORIDE 106 mmol/L (97-110); CREATININE 3.64 mg/dl (0.61-1.24); GLUCOSE 88 mg/dl (70-220); POTASSIUM 4.1 mmol/L (3.5-5.1); SODIUM 142 mmol/L (135-144); TOTAL PROTEIN 6.3 g/dl (6.1-8.1)
[2018-01-24] MEDS: ESCITALOPRAM 10 MG TAB PO (08:18)
[2018-01-24] MEDS: ASPIRIN (EC) 81 MG TAB PO (08:19)
[2018-01-24] MEDS: MULTIVITAMINS THERAPEUTIC TAB PO (08:19)
[2018-01-24] MEDS: SOD CHLORIDE 0.9% 1,000 ML IV (10:26)
[2018-01-24] MEDS: REGADENOSON 0.4 MG/5 ML SYG ×2 (13:10→13:23)
[2018-01-24] MEDS ORDERED: morphine LIQ (10 MG/5 ML) CUP PO (14:30)
[2018-01-24 14:52] LABS: CREATINE KINASE 35 IU/L (23-200)
[2018-01-24 15:04] LABS: CK INDEX 1.1; CK-MB 0.38 ng/ml (0.0-2.4); TROPONIN-I 0.021 ng/ml (0.000-0.120)
[2018-01-24] MEDS ORDERED: BENAZEPRIL 20 MG TAB PO (21:00)
== END 2018-01-24 16:33 | disposition left against medical advice (07) | DRG 314 ==
LOC: E/R 18:54 → 6WM 23:23
PROC: 02PAX3Z Removal of Infusion Device from Heart, External Approach (ICD-10-PCS; principal; 2018-01-23 13:00)
PROC: 02HV33Z Insertion of Infusion Device into Superior Vena Cava, Percutaneous Approach (ICD-10-PCS; 2018-01-23 13:00)
PROC: 5A1D70Z Performance of Urinary Filtration, Intermittent, Less than 6 Hours Per Day (ICD-10-PCS; 2018-01-23 13:30)
DX: T82.898A Other specified complication of vascular prosthetic devices, implants and grafts, initial encounter (principal); N18.6 End stage renal disease; I12.0 Hypertensive chronic kidney disease with stage 5 chronic kidney disease or end stage renal disease; E87.2 Acidosis; Z99.2 Dependence on renal dialysis; F41.9 Anxiety disorder, unspecified; D63.1 Anemia in chronic kidney disease; E66.9 Obesity, unspecified; Z68.30 Body mass index [BMI] 30.0-30.9, adult; E78.00 Pure hypercholesterolemia, unspecified; Z91.15 Patient's noncompliance with renal dialysis
CPT/HCPCS: 36415; 71045; 78452; 80048; 80053; 80061; 82550; 82553; 83605; 84484; 85025; 85610; 85730; 87040; 90935; 93005; 93017; 96374; 96375; 99285-25

== ENCOUNTER 2018-04-08 09:40 | Emergency (ER) | payer MEDICAID ==
[2018-04-08 10:14] LABS: ADD MAN DIFF? NO
[2018-04-08 10:17] LABS: WHITE BLOOD COUNT 7.8 10^3/ul (4.8-10.8)
[2018-04-08 10:17] LABS: BASOPHIL # 0.1 10^3/ul (0.0-0.1); BASOPHILS % 0.8 % (0.0-2.0); EOSINOPHILS # 0.2 10^3/ul (0.0-0.5); EOSINOPHILS % 2.1 % (0.0-7.0); HEMATOCRIT 37.8 % (42.0-52.0); LYMPHOCYTES % 25.6 % (15.0-51.0); MEAN CORPUSCULAR HEMOGLOBIN 31.3 pg (29.0-33.0); MEAN CORPUSCULAR HGB CONC 34.4 g/dl (32.0-37.0); MEAN CORPUSCULAR VOLUME 90.9 fl (82.0-101.0); MEAN PLATELET VOLUME 9.5 fl (7.4-10.4); MONOCYTE # 0.6 10^3/ul (0.3-0.9); MONOCYTES % 8.2 % (0.0-11.0); NEUTROPHIL # 4.9 10^3/ul (1.6-7.5); NEUTROPHILS % 62.9 % (39.0-77.0); PLATELET COUNT 269 10^3/UL (140-415); RED BLOOD COUNT 4.16 10^6/ul (4.70-6.10); RED CELL DISTRIBUTION WIDTH 14.1 % (11.5-14.5)
[2018-04-08 10:23] LABS: ALANINE AMINOTRANSFERASE 25 IU/L (13-69); ALBUMIN 3.7 g/dl (3.3-4.9); ALBUMIN/GLOBULIN RATIO 1.15; ALKALINE PHOSPHATASE 98 IU/L (42-121); ANION GAP 11 (5-13); ASPARTATE AMINO TRANSFERASE 25 IU/L (15-46); BILIRUBIN,INDIRECT 0.3 mg/dl (0-1.1); BILIRUBIN,TOTAL 0.3 mg/dl (0.2-1.3); BLOOD UREA NITROGEN 33 mg/dl (7-20); CALCIUM 9.3 mg/dl (8.4-10.2); CARBON DIOXIDE 26 mmol/L (21-31); CHLORIDE 105 mmol/L (97-110); CREATININE 4.44 mg/dl (0.61-1.24); GLUCOSE 89 mg/dl (70-220); INR 0.87; POTASSIUM 4.2 mmol/L (3.5-5.1); PROTIME 11.9 Sec (11.9-14.9); PT RATIO 0.9; SODIUM 142 mmol/L (135-144); TOTAL PROTEIN 6.9 g/dl (6.1-8.1)
[2018-04-08 10:25] LABS: PARTIAL THROMBOPLASTIN TIME 40.9 Sec (23.0-35.0)
[2018-04-08] MEDS: ASPIRIN 325 MG TAB PO (10:29)
[2018-04-08 10:34] LABS: TROPONIN-I 0.067 ng/ml (0.000-0.120)
[2018-04-08] MEDS: LABETALOL HCL 20MG INJ IV (11:33)
[2018-04-08 13:15] LABS: ETHANOL < 10.0 mg/dl
[2018-04-08 14:17] LABS: TROPONIN-I 0.051 ng/ml (0.000-0.120)
== END 2018-04-08 14:30 | disposition left against medical advice (07) ==
LOC: E/R 09:40
DX: I12.0 Hypertensive chronic kidney disease with stage 5 chronic kidney disease or end stage renal disease (principal); N18.6 End stage renal disease; F17.210 Nicotine dependence, cigarettes, uncomplicated; R40.4 Transient alteration of awareness; Z99.2 Dependence on renal dialysis; Z79.82 Long term (current) use of aspirin
CPT/HCPCS: 36415; 70450; 71045; 80053; 80307; 84484; 85025; 85610; 85730; 93005; 96374; 99285-25

== ENCOUNTER 2018-06-18 18:18 | Inpatient (IN) | payer OTHER, MEDICAID ==
[2018-06-18] MEDS: ACETAMINOPHEN 325 MG TAB PO (19:12)
[2018-06-18 19:13] LABS: ADD MAN DIFF? NO
[2018-06-18 19:16] LABS: ABNORMAL IP MESSAGE 1; BASOPHILS % 0.2 % (0.0-2.0); EOSINOPHILS # 0.1 10^3/ul (0.0-0.5); EOSINOPHILS % 0.6 % (0.0-7.0); HEMATOCRIT 37.9 % (42.0-52.0); HEMOGLOBIN 12.4 g/dl (14.0-18.0); LYMPHOCYTES # 0.3 10^3/ul (0.8-2.9); LYMPHOCYTES % 2.3 % (15.0-51.0); MEAN CORPUSCULAR HEMOGLOBIN 30.5 pg (29.0-33.0); MEAN CORPUSCULAR HGB CONC 32.7 g/dl (32.0-37.0); MEAN CORPUSCULAR VOLUME 93.1 fl (82.0-101.0); MEAN PLATELET VOLUME 9.1 fl (7.4-10.4); MONOCYTE # 0.2 10^3/ul (0.3-0.9); MONOCYTES % 1.9 % (0.0-11.0); NEUTROPHIL # 10.2 10^3/ul (1.6-7.5); NEUTROPHILS % 94.7 % (39.0-77.0); PLATELET COUNT 242 10^3/UL (140-415); POSITIVE DIFF @See below; RED BLOOD COUNT 4.07 10^6/ul (4.70-6.10); RED CELL DISTRIBUTION WIDTH 14.1 % (11.5-14.5)
[2018-06-18 19:16] LABS: WHITE BLOOD COUNT 10.8 10^3/ul (4.8-10.8)
[2018-06-18 19:35] LABS: PROTIME 12.3 Sec (11.9-14.9)
[2018-06-18 19:36] LABS: PARTIAL THROMBOPLASTIN TIME 26.8 Sec (23.0-35.0)
[2018-06-18 19:39] LABS: ANION GAP 10 (5-13); BLOOD UREA NITROGEN 49 mg/dl (7-20); CALCIUM 9.3 mg/dl (8.4-10.2); CARBON DIOXIDE 23 mmol/L (21-31); CHLORIDE 103 mmol/L (97-110); Estimated GFR 10 mL/min (>60); GLUCOSE 94 mg/dl (70-220); POTASSIUM 4.6 mmol/L (3.5-5.1); SODIUM 136 mmol/L (135-144)
[2018-06-18 19:50] LABS: TROPONIN-I 0.102 ng/ml (0.000-0.120)
[2018-06-18 20:00] LABS: ADD UMIC YES; UR ASCORBIC ACID NEGATIVE (NEGATIVE); UR BILIRUBIN (Dip) NEGATIVE (NEGATIVE); UR BLOOD (Dip) 1+ mg/dL (NEGATIVE); UR CLARITY CLEAR (CLEAR); UR COLOR STRAW (YELLOW); UR GLUCOSE (Dip) NEGATIVE (NEGATIVE); UR KETONES (Dip) NEGATIVE (NEGATIVE); UR LEUKOCYTE ESTERASE (Dip) NEGATIVE Leu/ul (NEGATIVE); UR NITRITE (Dip) NEGATIVE (NEGATIVE); UR RBC 10 /HPF (0-5); UR TOTAL PROTEIN (Dip) 2+ mg/dl (NEGATIVE); UR UROBILINOGEN (Dip) NEGATIVE (NEGATIVE); UR WBC 11 /HPF (0-5)
[2018-06-18] MEDS ORDERED: ONDANSETRON 4 MG INJ IV (20:00)
[2018-06-18] MEDS ORDERED: ACETAMINOPHEN 325 MG TAB PO (20:00)
[2018-06-18] MEDS: ONDANSETRON 4 MG INJ IV (20:07)
[2018-06-18] MEDS: morphine 4 MG/ML VIAL IV (20:07)
[2018-06-18] MEDS: CEFEPIME 2GM/50 ML (PMX) 50 ML IVPB (20:07)
[2018-06-18] MEDS: VANCOMYCIN 1 GM (PMX) 250 ML IVPB (20:48)
[2018-06-18 23:09] LABS: LACTIC ACID 1.8 mmol/L (0.5-2.0)
[2018-06-18] MEDS: SOD CHLORIDE 0.9% 500 ML IV (23:14)
[2018-06-19] MEDS ORDERED: NACL 0.9% 3 ML SYG IV (02:30)
[2018-06-19] MEDS ORDERED: ONDANSETRON 4 MG INJ IV (02:30)
[2018-06-19] MEDS: VANCOMYCIN 1 GM 250 ML IVPB (03:50)
[2018-06-19] MEDS: BENAZEPRIL 20 MG TAB PO ×3 (03:51→13:12)
[2018-06-19] MEDS: LABETALOL 200 MG TAB PO ×4 (03:51→20:33)
[2018-06-19] MEDS: ALPRAZOLAM 1 MG TAB PO (03:52)
[2018-06-19] MEDS: ACETAMINOPHEN 325 MG TAB PO ×3 (03:52→20:34)
[2018-06-19 06:49] LABS: ABNORMAL IP MESSAGE 1; HEMATOCRIT 33.8 % (42.0-52.0); HEMOGLOBIN 10.8 g/dl (14.0-18.0); MEAN CORPUSCULAR HEMOGLOBIN 30.7 pg (29.0-33.0); MEAN PLATELET VOLUME 9.4 fl (7.4-10.4); PLATELET COUNT 229 10^3/UL (140-415); POSITIVE DIFF @See below; RED BLOOD COUNT 3.52 10^6/ul (4.70-6.10); RED CELL DISTRIBUTION WIDTH 14.1 % (11.5-14.5)
[2018-06-19 06:49] LABS: WHITE BLOOD COUNT 23.8 10^3/ul (4.8-10.8)
[2018-06-19 06:57] LABS: ADD MAN DIFF? YES
[2018-06-19 07:13] LABS: ALANINE AMINOTRANSFERASE 69 IU/L (13-69); ALBUMIN/GLOBULIN RATIO 1.25; ALKALINE PHOSPHATASE 62 IU/L (42-121); ANION GAP 12 (5-13); ASPARTATE AMINO TRANSFERASE 50 IU/L (15-46); BILIRUBIN,INDIRECT 0.1 mg/dl (0-1.1); BILIRUBIN,TOTAL 0.1 mg/dl (0.2-1.3); BLOOD UREA NITROGEN 53 mg/dl (7-20); CALCIUM 8.6 mg/dl (8.4-10.2); CARBON DIOXIDE 25 mmol/L (21-31); CHLORIDE 102 mmol/L (97-110); CREATININE 6.95 mg/dl (0.61-1.24); Estimated GFR 9 mL/min (>60); GLUCOSE 115 mg/dl (70-220); SODIUM 139 mmol/L (135-144); TOTAL PROTEIN 5.4 g/dl (6.1-8.1)
[2018-06-19 07:17] LABS: POTASSIUM 6.2 mmol/L (3.5-5.1)
[2018-06-19 08:26] LABS: ANISOCYTOSIS 1+ (0-0); BAND NEUTROPHILS #M 6.1 10^3/ul (0.0-0.6); BAND NEUTROPHILS % (M) 26 % (0-4); BASOPHIL #M 0.2 10^3/ul (0.0-0.0); BASOPHILS % (M) 1 % (0-2); MICROCYTOSIS 1+ (0-0); MONOCYTE #M 0.9 10^3/ul (0.3-0.9); MONOCYTES % (M) 4 % (0-11); PLATELET ESTIMATE NORMAL; SEG NEUT #M 17.9 10^3/ul (1.6-7.5); SEGMENTED NEUTROPHILS (M) % 69 % (39-77); SMUDGE%M 4 % (0-0)
[2018-06-19] MEDS: ASPIRIN (EC) 81 MG TAB PO (08:51)
[2018-06-19] MEDS: CEFTRIAXONE 1 GM/50 ML (PMX) 50 ML IVPB ×2 (08:52→20:33)
[2018-06-19] MEDS ORDERED: VANCOMYCIN IV PER PHARMACY XX (09:00)
[2018-06-19 09:47] LABS: HEPATITIS B SURFACE ANTIGEN NEGATIVE (NEGATIVE)
[2018-06-19] MEDS: HEPARIN 1000 UNITS/ML 10 ML INJ CATHETER (13:46)
[2018-06-19] MEDS ORDERED: CEPASTAT LOZENGE MT (14:00)
[2018-06-19] MEDS ORDERED: morphine 2 MG INJ IV (14:00)
[2018-06-19] MEDS: morphine 4 MG/ML VIAL IV ×2 (14:21→18:50)
[2018-06-19] MEDS ORDERED: LIDOCAINE 1% (MDV) 20 ML INJ (16:29)
[2018-06-19] MEDS: RANITIDINE 150 MG TAB PO (20:33)
[2018-06-19] MEDS ORDERED: METOPROLOL 25 MG TAB PO (21:00)
[2018-06-20] MEDS: morphine 4 MG/ML VIAL IV ×2 (01:51→15:50)
[2018-06-20] MEDS: ACETAMINOPHEN 325 MG TAB PO (04:07)
[2018-06-20] MEDS: LABETALOL HCL 20MG INJ IV (05:01)
[2018-06-20 06:34] LABS: ADD MAN DIFF? NO
[2018-06-20 06:49] LABS: BASOPHIL # 0.1 10^3/ul (0.0-0.1); BASOPHILS % 0.3 % (0.0-2.0); EOSINOPHILS # 0.3 10^3/ul (0.0-0.5); EOSINOPHILS % 1.8 % (0.0-7.0); HEMATOCRIT 33.4 % (42.0-52.0); HEMOGLOBIN 10.7 g/dl (14.0-18.0); LYMPHOCYTES # 0.9 10^3/ul (0.8-2.9); LYMPHOCYTES % 5.6 % (15.0-51.0); MEAN CORPUSCULAR HEMOGLOBIN 30.6 pg (29.0-33.0); MEAN CORPUSCULAR VOLUME 95.4 fl (82.0-101.0); MEAN PLATELET VOLUME 9.9 fl (7.4-10.4); MONOCYTES % 6.5 % (0.0-11.0); NEUTROPHIL # 13.3 10^3/ul (1.6-7.5); PLATELET COUNT 208 10^3/UL (140-415); RED CELL DISTRIBUTION WIDTH 14.1 % (11.5-14.5)
[2018-06-20 06:49] LABS: WHITE BLOOD COUNT 15.6 10^3/ul (4.8-10.8)
[2018-06-20 07:00] LABS: ANION GAP 11 (5-13); BLOOD UREA NITROGEN 41 mg/dl (7-20); CALCIUM 8.9 mg/dl (8.4-10.2); CARBON DIOXIDE 27 mmol/L (21-31); CHLORIDE 99 mmol/L (97-110); CREATININE 5.93 mg/dl (0.61-1.24); Estimated GFR 10 mL/min (>60); GLUCOSE 125 mg/dl (70-220); PHOSPHORUS 4.9 mg/dl (2.5-4.9); POTASSIUM 4.9 mmol/L (3.5-5.1); SODIUM 137 mmol/L (135-144)
[2018-06-20] MEDS: LABETALOL 200 MG TAB PO ×2 (08:54→20:51)
[2018-06-20] MEDS: CEFTRIAXONE 1 GM/50 ML (PMX) 50 ML IVPB (08:54)
[2018-06-20] MEDS: ASPIRIN (EC) 81 MG TAB PO (08:54)
[2018-06-20] MEDS ORDERED: NITROGLYCERIN (SL) 0.4 MG TAB SL (16:00)
[2018-06-20] MEDS: NITROGLYCERIN (SL) 0.4 MG TAB SL (16:03)
[2018-06-20 16:45] LABS: ANION GAP 10 (5-13); BLOOD UREA NITROGEN 39 mg/dl (7-20); CALCIUM 8.9 mg/dl (8.4-10.2); CARBON DIOXIDE 25 mmol/L (21-31); CHLORIDE 101 mmol/L (97-110); CREATININE 6.25 mg/dl (0.61-1.24); Estimated GFR 10 mL/min (>60); GLUCOSE 108 mg/dl (70-220); MAGNESIUM 2.1 mg/dl (1.7-2.5); POTASSIUM 4.3 mmol/L (3.5-5.1); SODIUM 136 mmol/L (135-144)
[2018-06-20 16:56] LABS: TROPONIN-I 0.047 ng/ml (0.000-0.120)
[2018-06-20] MEDS ORDERED: hydrALAzine 20 MG INJ IV (18:00)
[2018-06-20] MEDS: hydrALAzine 20 MG INJ IV (18:46)
[2018-06-20] MEDS: RANITIDINE 150 MG TAB PO (20:50)
[2018-06-20 23:04] LABS: TROPONIN-I 0.053 ng/ml (0.000-0.120)
[2018-06-21] MEDS: LABETALOL 200 MG TAB PO ×2 (00:32→05:20)
[2018-06-21] MEDS: morphine 4 MG/ML VIAL IV ×2 (00:40→05:21)
[2018-06-21] MEDS: hydrALAzine 20 MG INJ IV (04:37)
[2018-06-21 05:53] LABS: ADD MAN DIFF? NO
[2018-06-21 06:03] LABS: WHITE BLOOD COUNT 11.6 10^3/ul (4.8-10.8)
[2018-06-21 06:03] LABS: BASOPHILS % 0.3 % (0.0-2.0); EOSINOPHILS # 0.3 10^3/ul (0.0-0.5); EOSINOPHILS % 2.7 % (0.0-7.0); HEMATOCRIT 32.7 % (42.0-52.0); HEMOGLOBIN 10.6 g/dl (14.0-18.0); LYMPHOCYTES # 1.2 10^3/ul (0.8-2.9); LYMPHOCYTES % 10.5 % (15.0-51.0); MEAN CORPUSCULAR HEMOGLOBIN 30.5 pg (29.0-33.0); MEAN CORPUSCULAR HGB CONC 32.4 g/dl (32.0-37.0); MEAN PLATELET VOLUME 10.1 fl (7.4-10.4); MONOCYTES % 8.5 % (0.0-11.0); NEUTROPHILS % 77.6 % (39.0-77.0); PLATELET COUNT 233 10^3/UL (140-415); RED BLOOD COUNT 3.48 10^6/ul (4.70-6.10); RED CELL DISTRIBUTION WIDTH 14.1 % (11.5-14.5)
[2018-06-21 06:39] LABS: VANCOMYCIN,RANDOM 12.6 ug/ml
[2018-06-21 06:44] LABS: ANION GAP 11 (5-13); BLOOD UREA NITROGEN 44 mg/dl (7-20); CALCIUM 9.2 mg/dl (8.4-10.2); CARBON DIOXIDE 23 mmol/L (21-31); CHLORIDE 104 mmol/L (97-110); CREATININE 6.79 mg/dl (0.61-1.24); Estimated GFR 9 mL/min (>60); GLUCOSE 162 mg/dl (70-220); POTASSIUM 4.3 mmol/L (3.5-5.1); SODIUM 138 mmol/L (135-144)
[2018-06-21 07:59] LABS: TROPONIN-I 0.055 ng/ml (0.000-0.120)
[2018-06-21] MEDS: VANCOMYCIN 1 GM 250 ML IVPB (09:13)
[2018-06-21] MEDS: ASPIRIN (EC) 81 MG TAB PO (09:13)
[2018-06-21] MEDS: HYDROCODONE/APAP (5/325) TAB PO ×3 (11:53→20:09)
[2018-06-21] MEDS: METOPROLOL (XL) 25 MG TAB PO ×2 (11:54→20:09)
[2018-06-21] MEDS: AMLODIPINE 5 MG TAB PO (13:35)
[2018-06-21] MEDS: RANITIDINE 150 MG TAB PO (20:09)
[2018-06-21] MEDS: OXACILLIN IVPB (21:39)
[2018-06-21] MEDS: SOD CHLORIDE 0.9% IVPB (21:39)
[2018-06-21] MEDS: AL HYDROX/MG HYDROX/SIMETH 30 ML CUP PO (23:44)
[2018-06-22] MEDS: SOD CHLORIDE 0.9% IVPB ×6 (00:47→20:25)
[2018-06-22] MEDS: OXACILLIN IVPB ×6 (00:47→20:25)
[2018-06-22] MEDS: ALPRAZOLAM 1 MG TAB PO (03:13)
[2018-06-22 06:24] LABS: ADD MAN DIFF? NO
[2018-06-22 06:37] LABS: WHITE BLOOD COUNT 7.2 10^3/ul (4.8-10.8)
[2018-06-22 06:37] LABS: BASOPHILS % 0.3 % (0.0-2.0); EOSINOPHILS # 0.3 10^3/ul (0.0-0.5); EOSINOPHILS % 4.6 % (0.0-7.0); HEMATOCRIT 31.2 % (42.0-52.0); HEMOGLOBIN 10.1 g/dl (14.0-18.0); LYMPHOCYTES # 1.4 10^3/ul (0.8-2.9); LYMPHOCYTES % 19.4 % (15.0-51.0); MEAN CORPUSCULAR HEMOGLOBIN 30.5 pg (29.0-33.0); MEAN CORPUSCULAR HGB CONC 32.4 g/dl (32.0-37.0); MEAN CORPUSCULAR VOLUME 94.3 fl (82.0-101.0); MEAN PLATELET VOLUME 9.9 fl (7.4-10.4); MONOCYTE # 0.7 10^3/ul (0.3-0.9); MONOCYTES % 10.1 % (0.0-11.0); NEUTROPHIL # 4.7 10^3/ul (1.6-7.5); PLATELET COUNT 260 10^3/UL (140-415); RED BLOOD COUNT 3.31 10^6/ul (4.70-6.10); RED CELL DISTRIBUTION WIDTH 13.6 % (11.5-14.5)
[2018-06-22 07:13] LABS: ANION GAP 12 (5-13); BLOOD UREA NITROGEN 48 mg/dl (7-20); CARBON DIOXIDE 27 mmol/L (21-31); CHLORIDE 102 mmol/L (97-110); CREATININE 7.26 mg/dl (0.61-1.24); Estimated GFR 8 mL/min (>60); GLUCOSE 126 mg/dl (70-220); POTASSIUM 4.5 mmol/L (3.5-5.1); SODIUM 141 mmol/L (135-144)
[2018-06-22] MEDS: ASPIRIN (EC) 81 MG TAB PO (08:08)
[2018-06-22] MEDS: METOPROLOL (XL) 25 MG TAB PO ×4 (08:09→22:28)
[2018-06-22] MEDS: AMLODIPINE 5 MG TAB PO (08:09)
[2018-06-22] MEDS: hydrALAzine 20 MG INJ IV ×3 (14:32→22:29)
[2018-06-22] MEDS: ACETAMINOPHEN 325 MG TAB PO (16:29)
[2018-06-22] MEDS: RANITIDINE 150 MG TAB PO (20:24)
[2018-06-22] MEDS: HYDROCODONE/APAP (5/325) TAB PO (23:09)
[2018-06-23] MEDS: OXACILLIN IVPB ×6 (00:19→21:49)
[2018-06-23] MEDS: SOD CHLORIDE 0.9% IVPB ×6 (00:19→21:49)
[2018-06-23 07:15] LABS: ADD MAN DIFF? NO
[2018-06-23 07:21] LABS: BASOPHIL # 0.1 10^3/ul (0.0-0.1); BASOPHILS % 0.7 % (0.0-2.0); EOSINOPHILS # 0.4 10^3/ul (0.0-0.5); EOSINOPHILS % 5.5 % (0.0-7.0); HEMATOCRIT 32.6 % (42.0-52.0); HEMOGLOBIN 10.4 g/dl (14.0-18.0); LYMPHOCYTES # 1.7 10^3/ul (0.8-2.9); LYMPHOCYTES % 22.5 % (15.0-51.0); MEAN CORPUSCULAR HEMOGLOBIN 30.2 pg (29.0-33.0); MEAN CORPUSCULAR HGB CONC 31.9 g/dl (32.0-37.0); MEAN CORPUSCULAR VOLUME 94.8 fl (82.0-101.0); MEAN PLATELET VOLUME 9.7 fl (7.4-10.4); MONOCYTE # 0.8 10^3/ul (0.3-0.9); MONOCYTES % 10.7 % (0.0-11.0); NEUTROPHIL # 4.5 10^3/ul (1.6-7.5); PLATELET COUNT 295 10^3/UL (140-415); RED BLOOD COUNT 3.44 10^6/ul (4.70-6.10); RED CELL DISTRIBUTION WIDTH 13.7 % (11.5-14.5)
[2018-06-23 07:21] LABS: WHITE BLOOD COUNT 7.6 10^3/ul (4.8-10.8)
[2018-06-23 07:40] LABS: ANION GAP 15 (5-13); BLOOD UREA NITROGEN 54 mg/dl (7-20); CALCIUM 8.9 mg/dl (8.4-10.2); CARBON DIOXIDE 21 mmol/L (21-31); CHLORIDE 104 mmol/L (97-110); CREATININE 6.91 mg/dl (0.61-1.24); Estimated GFR 9 mL/min (>60); GLUCOSE 124 mg/dl (70-220); SODIUM 140 mmol/L (135-144)
[2018-06-23] MEDS: AMLODIPINE 5 MG TAB PO (09:04)
[2018-06-23] MEDS: METOPROLOL (XL) 25 MG TAB PO ×2 (09:05→21:50)
[2018-06-23] MEDS: HEPARIN 1000 UNITS/ML 10 ML INJ (10:38)
[2018-06-23] MEDS ORDERED: LORAZEPAM 2 MG INJ IV (11:48)
[2018-06-23] MEDS ORDERED: LORAZEPAM 4 MG/ML VIAL IV (11:49)
[2018-06-23] MEDS: LORAZEPAM 4 MG/ML VIAL IV (12:07)
[2018-06-23] MEDS: ASPIRIN (EC) 81 MG TAB PO (13:31)
[2018-06-23] MEDS: RANITIDINE 150 MG TAB PO (21:49)
[2018-06-24] MEDS: OXACILLIN IVPB ×6 (01:00→20:41)
[2018-06-24] MEDS: SOD CHLORIDE 0.9% IVPB ×6 (01:00→20:41)
[2018-06-24] MEDS: ALPRAZOLAM 0.5 MG TAB PO ×2 (03:04→14:07)
[2018-06-24] MEDS: HYDROCODONE/APAP (5/325) TAB PO ×2 (06:06→16:24)
[2018-06-24 08:34] LABS: ADD MAN DIFF? NO
[2018-06-24 08:39] LABS: BASOPHIL # 0.1 10^3/ul (0.0-0.1); BASOPHILS % 0.4 % (0.0-2.0); EOSINOPHILS # 0.4 10^3/ul (0.0-0.5); HEMATOCRIT 31.8 % (42.0-52.0); HEMOGLOBIN 10.2 g/dl (14.0-18.0); LYMPHOCYTES % 17.1 % (15.0-51.0); MEAN CORPUSCULAR HEMOGLOBIN 30.4 pg (29.0-33.0); MEAN CORPUSCULAR HGB CONC 32.1 g/dl (32.0-37.0); MEAN CORPUSCULAR VOLUME 94.9 fl (82.0-101.0); MEAN PLATELET VOLUME 10.1 fl (7.4-10.4); MONOCYTE # 0.9 10^3/ul (0.3-0.9); NEUTROPHIL # 8.1 10^3/ul (1.6-7.5); NEUTROPHILS % 69.2 % (39.0-77.0); PLATELET COUNT 339 10^3/UL (140-415); RED BLOOD COUNT 3.35 10^6/ul (4.70-6.10); RED CELL DISTRIBUTION WIDTH 13.5 % (11.5-14.5)
[2018-06-24 08:39] LABS: WHITE BLOOD COUNT 11.6 10^3/ul (4.8-10.8)
[2018-06-24 09:05] LABS: ANION GAP 13 (5-13); BLOOD UREA NITROGEN 63 mg/dl (7-20); CALCIUM 8.9 mg/dl (8.4-10.2); CARBON DIOXIDE 20 mmol/L (21-31); CHLORIDE 106 mmol/L (97-110); Estimated GFR 9 mL/min (>60); GLUCOSE 105 mg/dl (70-220); POTASSIUM 5.4 mmol/L (3.5-5.1); SODIUM 139 mmol/L (135-144)
[2018-06-24] MEDS: HEPARIN 1000 UNITS/ML 10 ML INJ CATHETER (09:51)
[2018-06-24] MEDS: AMLODIPINE 5 MG TAB PO ×2 (10:25→14:07)
[2018-06-24] MEDS: ASPIRIN (EC) 81 MG TAB PO (10:26)
[2018-06-24] MEDS: METOPROLOL (XL) 25 MG TAB PO ×2 (10:26→20:42)
[2018-06-24] MEDS: CEFAZOLIN 1 GM INJ IM (16:16)
[2018-06-24] MEDS: RANITIDINE 150 MG TAB PO (20:41)
[2018-06-25] MEDS: SOD CHLORIDE 0.9% IVPB ×6 (01:43→20:38)
[2018-06-25] MEDS: OXACILLIN IVPB ×6 (01:43→20:38)
[2018-06-25] MEDS: hydrALAzine 20 MG INJ IV ×2 (02:19→05:03)
[2018-06-25] MEDS: HYDROCODONE/APAP (5/325) TAB PO (05:07)
[2018-06-25 07:18] LABS: ADD MAN DIFF? NO
[2018-06-25 07:20] LABS: WHITE BLOOD COUNT 12.5 10^3/ul (4.8-10.8)
[2018-06-25 07:20] LABS: BASOPHILS % 0.3 % (0.0-2.0); EOSINOPHILS # 0.4 10^3/ul (0.0-0.5); EOSINOPHILS % 3.2 % (0.0-7.0); HEMATOCRIT 33.8 % (42.0-52.0); HEMOGLOBIN 10.9 g/dl (14.0-18.0); LYMPHOCYTES # 2.1 10^3/ul (0.8-2.9); LYMPHOCYTES % 16.6 % (15.0-51.0); MEAN CORPUSCULAR HGB CONC 32.2 g/dl (32.0-37.0); MEAN CORPUSCULAR VOLUME 93.1 fl (82.0-101.0); MEAN PLATELET VOLUME 9.3 fl (7.4-10.4); MONOCYTES % 7.9 % (0.0-11.0); NEUTROPHIL # 8.7 10^3/ul (1.6-7.5); NEUTROPHILS % 69.5 % (39.0-77.0); PLATELET COUNT 348 10^3/UL (140-415); RED BLOOD COUNT 3.63 10^6/ul (4.70-6.10); RED CELL DISTRIBUTION WIDTH 13.7 % (11.5-14.5)
[2018-06-25 07:36] LABS: ANION GAP 11 (5-13); BLOOD UREA NITROGEN 48 mg/dl (7-20); CALCIUM 9.3 mg/dl (8.4-10.2); CARBON DIOXIDE 23 mmol/L (21-31); CHLORIDE 104 mmol/L (97-110); Estimated GFR 11 mL/min (>60); GLUCOSE 138 mg/dl (70-220); POTASSIUM 4.8 mmol/L (3.5-5.1); SODIUM 138 mmol/L (135-144)
[2018-06-25] MEDS: ASPIRIN (EC) 81 MG TAB PO (09:05)
[2018-06-25] MEDS: METOPROLOL (XL) 25 MG TAB PO ×2 (09:06→14:51)
[2018-06-25] MEDS: AMLODIPINE 10 MG TAB PO (09:07)
[2018-06-25] MEDS: RANITIDINE 150 MG TAB PO (20:39)
[2018-06-26] MEDS: ALPRAZOLAM 0.5 MG TAB PO ×3 (00:45→21:22)
[2018-06-26] MEDS: SOD CHLORIDE 0.9% IVPB ×6 (01:00→23:01)
[2018-06-26] MEDS: OXACILLIN IVPB ×6 (01:00→23:01)
[2018-06-26] MEDS: hydrALAzine 20 MG INJ IV ×2 (05:21→14:50)
[2018-06-26 05:56] LABS: ADD MAN DIFF? NO
[2018-06-26 05:59] LABS: BASOPHIL # 0.1 10^3/ul (0.0-0.1); BASOPHILS % 0.5 % (0.0-2.0); EOSINOPHILS # 0.4 10^3/ul (0.0-0.5); EOSINOPHILS % 2.9 % (0.0-7.0); HEMATOCRIT 34.5 % (42.0-52.0); HEMOGLOBIN 11.4 g/dl (14.0-18.0); LYMPHOCYTES # 2.4 10^3/ul (0.8-2.9); LYMPHOCYTES % 17.9 % (15.0-51.0); MEAN CORPUSCULAR HEMOGLOBIN 30.4 pg (29.0-33.0); MEAN PLATELET VOLUME 9.3 fl (7.4-10.4); MONOCYTE # 1.2 10^3/ul (0.3-0.9); MONOCYTES % 9.2 % (0.0-11.0); NEUTROPHIL # 8.7 10^3/ul (1.6-7.5); NEUTROPHILS % 65.7 % (39.0-77.0); PLATELET COUNT 388 10^3/UL (140-415); RED BLOOD COUNT 3.75 10^6/ul (4.70-6.10); RED CELL DISTRIBUTION WIDTH 13.8 % (11.5-14.5)
[2018-06-26 05:59] LABS: WHITE BLOOD COUNT 13.3 10^3/ul (4.8-10.8)
[2018-06-26 06:23] LABS: ANION GAP 11 (5-13); BLOOD UREA NITROGEN 62 mg/dl (7-20); CALCIUM 9.7 mg/dl (8.4-10.2); CARBON DIOXIDE 22 mmol/L (21-31); CHLORIDE 105 mmol/L (97-110); CREATININE 6.32 mg/dl (0.61-1.24); Estimated GFR 10 mL/min (>60); GLUCOSE 104 mg/dl (70-220); POTASSIUM 5.1 mmol/L (3.5-5.1); SODIUM 138 mmol/L (135-144)
[2018-06-26] MEDS: AMLODIPINE 10 MG TAB PO (08:14)
[2018-06-26] MEDS: METOPROLOL (XL) 100 MG TAB PO (08:14)
[2018-06-26] MEDS: ASPIRIN (EC) 81 MG TAB PO (08:44)
[2018-06-26] MEDS: HYDROCODONE/APAP (5/325) TAB PO (08:45)
[2018-06-26] MEDS: ALTEPLASE (CATHFLO) 2 MG INJ CATHETER (11:08)
[2018-06-26] MEDS: RANITIDINE 150 MG TAB PO (22:55)
[2018-06-26] MEDS: LABETALOL 200 MG TAB PO (22:56)
[2018-06-26] MEDS: NIFEdipine (XL) 60 MG TAB PO (22:56)
[2018-06-26] MEDS: ACETAMINOPHEN 325 MG TAB PO (23:00)
[2018-06-27] MEDS: SOD CHLORIDE 0.9% IVPB ×4 (02:48→13:39)
[2018-06-27] MEDS: OXACILLIN IVPB ×4 (02:48→13:39)
[2018-06-27 06:47] LABS: ADD MAN DIFF? NO
[2018-06-27 06:56] LABS: BASOPHIL # 0.1 10^3/ul (0.0-0.1); BASOPHILS % 0.6 % (0.0-2.0); EOSINOPHILS # 0.3 10^3/ul (0.0-0.5); EOSINOPHILS % 2.8 % (0.0-7.0); HEMATOCRIT 33.2 % (42.0-52.0); HEMOGLOBIN 10.6 g/dl (14.0-18.0); LYMPHOCYTES # 2.3 10^3/ul (0.8-2.9); LYMPHOCYTES % 24.7 % (15.0-51.0); MEAN CORPUSCULAR HEMOGLOBIN 30.3 pg (29.0-33.0); MEAN CORPUSCULAR HGB CONC 31.9 g/dl (32.0-37.0); MEAN CORPUSCULAR VOLUME 94.9 fl (82.0-101.0); MEAN PLATELET VOLUME 9.3 fl (7.4-10.4); MONOCYTE # 0.9 10^3/ul (0.3-0.9); NEUTROPHIL # 5.3 10^3/ul (1.6-7.5); NEUTROPHILS % 57.3 % (39.0-77.0); PLATELET COUNT 399 10^3/UL (140-415); RED CELL DISTRIBUTION WIDTH 13.9 % (11.5-14.5)
[2018-06-27 06:56] LABS: WHITE BLOOD COUNT 9.3 10^3/ul (4.8-10.8)
[2018-06-27 07:27] LABS: ANION GAP 9 (5-13); BLOOD UREA NITROGEN 40 mg/dl (7-20); CALCIUM 9.1 mg/dl (8.4-10.2); CARBON DIOXIDE 28 mmol/L (21-31); CHLORIDE 102 mmol/L (97-110); CREATININE 4.45 mg/dl (0.61-1.24); Estimated GFR 14 mL/min (>60); GLUCOSE 122 mg/dl (70-220); POTASSIUM 4.5 mmol/L (3.5-5.1); SODIUM 139 mmol/L (135-144)
[2018-06-27] MEDS: NIFEdipine (XL) 60 MG TAB PO (09:39)
[2018-06-27] MEDS: ASPIRIN (EC) 81 MG TAB PO (09:39)
[2018-06-27] MEDS: LABETALOL 200 MG TAB PO (09:39)
[2018-06-27] MEDS: LISINOPRIL 20 MG TAB PO (10:25)
[2018-06-27] MEDS: ALPRAZOLAM 0.5 MG TAB PO (13:55)
== END 2018-06-27 17:05 | disposition left against medical advice (07) | DRG 314 ==
LOC: TEL 19:50 → E/R 18:18 → PP2 06-22 16:24
PROVIDERS: Internal Medicine
PROC: 05HM33Z Insertion of Infusion Device into Right Internal Jugular Vein, Percutaneous Approach (ICD-10-PCS; principal; 2018-06-19 16:30)
PROC: 05PY33Z Removal of Infusion Device from Upper Vein, Percutaneous Approach (ICD-10-PCS; 2018-06-19 16:30)
PROC: 5A1D70Z Performance of Urinary Filtration, Intermittent, Less than 6 Hours Per Day (ICD-10-PCS; 2018-06-19 16:30)
DX: T80.211A Bloodstream infection due to central venous catheter, initial encounter (principal); A41.01 Sepsis due to Methicillin susceptible Staphylococcus aureus; N18.6 End stage renal disease; R65.20 Severe sepsis without septic shock; I12.0 Hypertensive chronic kidney disease with stage 5 chronic kidney disease or end stage renal disease; E87.5 Hyperkalemia; D63.1 Anemia in chronic kidney disease; F41.9 Anxiety disorder, unspecified; Y83.8 Other surgical procedures as the cause of abnormal reaction of the patient, or of later complication, without mention of misadventure at the time of the procedure; E83.9 Disorder of mineral metabolism, unspecified; Z72.0 Tobacco use; Z59.0 Homelessness; Z76.5 Malingerer [conscious simulation]
CPT/HCPCS: 36415; 36556; 36589; 71045; 76536; 76942; 80048; 80053; 80202; 81001; 83605; 83735; 84100; 84484; 85025; 85610; 85730; 87040; 87070; 87081; 87086; 87340; 87400; 90935; 93005; 97116; 97161; 99291-25

== ENCOUNTER 2018-06-30 08:28 | Inpatient (IN) | payer OTHER ==
[2018-06-30 09:44] LABS: ADD MAN DIFF? NO
[2018-06-30] MEDS: LABETALOL HCL 20MG INJ IV ×2 (09:46→12:01)
[2018-06-30 09:48] LABS: BASOPHIL # 0.1 10^3/ul (0.0-0.1); BASOPHILS % 0.5 % (0.0-2.0); EOSINOPHILS # 0.3 10^3/ul (0.0-0.5); EOSINOPHILS % 2.5 % (0.0-7.0); HEMATOCRIT 31.1 % (42.0-52.0); LYMPHOCYTES # 1.6 10^3/ul (0.8-2.9); LYMPHOCYTES % 14.4 % (15.0-51.0); MEAN CORPUSCULAR HEMOGLOBIN 30.4 pg (29.0-33.0); MEAN CORPUSCULAR HGB CONC 32.2 g/dl (32.0-37.0); MEAN CORPUSCULAR VOLUME 94.5 fl (82.0-101.0); MEAN PLATELET VOLUME 9.1 fl (7.4-10.4); MONOCYTE # 0.9 10^3/ul (0.3-0.9); MONOCYTES % 8.1 % (0.0-11.0); NEUTROPHIL # 8.1 10^3/ul (1.6-7.5); NEUTROPHILS % 73.7 % (39.0-77.0); PLATELET COUNT 390 10^3/UL (140-415); RED BLOOD COUNT 3.29 10^6/ul (4.70-6.10); RED CELL DISTRIBUTION WIDTH 13.8 % (11.5-14.5)
[2018-06-30 10:07] LABS: INR 0.87; PARTIAL THROMBOPLASTIN TIME 28.3 Sec (23.0-35.0); PROTIME 11.9 Sec (11.9-14.9); PT RATIO 0.9
[2018-06-30 10:09] LABS: ANION GAP 11 (5-13); BLOOD UREA NITROGEN 61 mg/dl (7-20); CALCIUM 9.4 mg/dl (8.4-10.2); CARBON DIOXIDE 18 mmol/L (21-31); CHLORIDE 112 mmol/L (97-110); CREATININE 6.75 mg/dl (0.61-1.24); Estimated GFR 9 mL/min (>60); GLUCOSE 99 mg/dl (70-220); POTASSIUM 5.2 mmol/L (3.5-5.1); SODIUM 141 mmol/L (135-144)
[2018-06-30] MEDS ORDERED: ONDANSETRON 4 MG INJ IV ×2 (10:30→17:00)
[2018-06-30] MEDS ORDERED: ACETAMINOPHEN 325 MG TAB PO ×2 (10:30→17:00)
[2018-06-30] MEDS: FLUTICASONE 0.05% 16 GM NAS SPRAY NASAL (10:38)
[2018-06-30] MEDS ORDERED: MIDAZOLAM 1 MG/ML 2 ML INJ (13:33)
[2018-06-30] MEDS ORDERED: FENTAnyl 50 MCG/ML VIAL (13:33)
[2018-06-30] MEDS ORDERED: HEPARIN 1000 UNITS/ML 10 ML INJ (14:30)
[2018-06-30] MEDS ORDERED: LIDOCAINE 1% (MDV) 20 ML INJ (14:30)
[2018-06-30] MEDS ORDERED: CEFAZOLIN 1 GM/50 ML (PMX) 50 ML IVPB (14:31)
[2018-06-30] MEDS: morphine 2 MG INJ IV ×2 (16:00→19:34)
[2018-06-30] MEDS: hydrALAzine 20 MG INJ IV (16:13)
[2018-06-30] MEDS: AMLODIPINE 5 MG TAB PO (17:00)
[2018-06-30] MEDS ORDERED: NACL 0.9% 3 ML SYG IV (17:00)
[2018-06-30] MEDS ORDERED: MAGNESIUM HYDROXIDE 30ML CUP PO (17:00)
[2018-06-30] MEDS ORDERED: hydrALAzine 20 MG INJ IV (17:00)
[2018-06-30] MEDS ORDERED: DOCUSATE SODIUM 100 MG CAP PO (17:00)
[2018-06-30] MEDS: ALPRAZOLAM 1 MG TAB PO (21:20)
[2018-06-30] MEDS: ZOLPIDEM 5 MG TAB PO (21:20)
[2018-06-30] MEDS: RANITIDINE 150 MG TAB PO (21:21)
[2018-06-30] MEDS: BENAZEPRIL 20 MG TAB PO (21:21)
[2018-06-30] MEDS: LABETALOL 200 MG TAB PO (21:21)
[2018-07-01] MEDS: HYDROCODONE/APAP (5/325) TAB PO (02:53)
[2018-07-01] MEDS: morphine SULFATE/PF (2 MG/2 ML) SYG IV (02:55)
[2018-07-01 06:10] LABS: ADD MAN DIFF? NO
[2018-07-01 06:13] LABS: WHITE BLOOD COUNT 8.4 10^3/ul (4.8-10.8)
[2018-07-01 06:13] LABS: BASOPHIL # 0.1 10^3/ul (0.0-0.1); BASOPHILS % 0.7 % (0.0-2.0); EOSINOPHILS # 0.1 10^3/ul (0.0-0.5); EOSINOPHILS % 1.7 % (0.0-7.0); HEMATOCRIT 32.8 % (42.0-52.0); HEMOGLOBIN 10.5 g/dl (14.0-18.0); LYMPHOCYTES # 1.4 10^3/ul (0.8-2.9); LYMPHOCYTES % 16.4 % (15.0-51.0); MEAN CORPUSCULAR HEMOGLOBIN 30.3 pg (29.0-33.0); MEAN CORPUSCULAR VOLUME 94.5 fl (82.0-101.0); MEAN PLATELET VOLUME 9.2 fl (7.4-10.4); MONOCYTE # 0.8 10^3/ul (0.3-0.9); NEUTROPHIL # 5.9 10^3/ul (1.6-7.5); NEUTROPHILS % 70.4 % (39.0-77.0); PLATELET COUNT 397 10^3/UL (140-415); RED BLOOD COUNT 3.47 10^6/ul (4.70-6.10); RED CELL DISTRIBUTION WIDTH 13.8 % (11.5-14.5)
[2018-07-01 06:38] LABS: ANION GAP 12 (5-13); BLOOD UREA NITROGEN 31 mg/dl (7-20); CALCIUM 9.1 mg/dl (8.4-10.2); CARBON DIOXIDE 29 mmol/L (21-31); CHLORIDE 100 mmol/L (97-110); CREATININE 4.61 mg/dl (0.61-1.24); Estimated GFR 14 mL/min (>60); GLUCOSE 106 mg/dl (70-220); POTASSIUM 4.6 mmol/L (3.5-5.1); SODIUM 141 mmol/L (135-144)
[2018-07-01] MEDS: ALPRAZOLAM 1 MG TAB PO (08:23)
[2018-07-01] MEDS: BENAZEPRIL 20 MG TAB PO (08:23)
[2018-07-01] MEDS: AMLODIPINE 5 MG TAB PO (08:26)
[2018-07-01] MEDS: LABETALOL 200 MG TAB PO (09:45)
== END 2018-07-01 13:58 | disposition home or self-care (01) | DRG 640 ==
LOC: 6WM 07-01 02:30 → E/R 08:28 → ICU 10:30
PROC: 0JH60XZ Insertion of Tunneled Vascular Access Device into Chest Subcutaneous Tissue and Fascia, Open Approach (ICD-10-PCS; principal; 2018-06-30 13:25)
PROC: 05HP33Z Insertion of Infusion Device into Right External Jugular Vein, Percutaneous Approach (ICD-10-PCS; 2018-06-30 13:25)
PROC: 5A1D70Z Performance of Urinary Filtration, Intermittent, Less than 6 Hours Per Day (ICD-10-PCS; 2018-06-30 13:25)
DX: E87.5 Hyperkalemia (principal); N18.6 End stage renal disease; I16.1 Hypertensive emergency; I12.0 Hypertensive chronic kidney disease with stage 5 chronic kidney disease or end stage renal disease; Z72.0 Tobacco use; Z99.2 Dependence on renal dialysis; D64.9 Anemia, unspecified
CPT/HCPCS: 36415; 71045; 80048; 83735; 84100; 84484; 85025; 85610; 85730; 93005; 96374; 99291-25